=== PATIENT | male | born 1970 | race African-American/Black ===

== ENCOUNTER 2017-10-01 11:51 | Emergency (ER) | payer OTHER ==
[~2017-10-01] VITALS: Ht 188 cm; Wt 80.7 kg
[2017-10-01 12:09] VITALS: BP 159/94
--- NOTE | 2017-10-01 13:58 | RADIOLOGY REPORT ---
EXAMINATION: XR HAND, LEFT CLINICAL INFORMATION: Crush injury to second digit COMPARISON: None TECHNIQUE: PA, lateral, and oblique views of the left hand. FINDINGS: The patient has incurred a nondisplaced comminuted fractures involving the terminal tuft distal phalanx left second finger. Otherwise unremarkable. IMPRESSION: Crush fracture terminal tuft distal phalanx left second finger.
--- NOTE | 2017-10-01 15:42 | ED GENERAL ADULT ---
History of Present Illness General Chief Complaint: Hand or Wrist Injury Stated Complaint: LEFT SECOND DIGIT PAIN S/P HIT WITH HAMMER Source: patient Exam Limitations: no limitations Vital Signs & Intake/Output Vital Signs & Intake/Output Vital Signs Date Time Temp Pulse Resp B/P B/P Pulse O2 O2 Flow FiO2 Mean Ox Delivery Rate 10/01 1209 97.2 51 20 159/94 98 Room Air ED Intake and Output 10/02 0000 10/01 1200 Intake Total Output Total Balance Patient 178 lb Weight Weight Reported by Patient Measurement Method Allergies Coded Allergies: No Known Allergies (10/01/17) Triage Note: PT TO ED C/O LEFT HAND INDEX FINGER PAIN S/P HITTING IT WITH A NAIL ON SUNDAY. Triage Nurses Notes Reviewed? yes Onset: Abrupt Duration: day(s): Timing: constant HPI: 47 y/o right hand dominant male with no known PMHx presenting with pain and swelling to his left second digit sustained 2 days ago when he accidentally hit his finger with a hammer when aiming for a nail. Denies numbness or paresthesias. (Soumya Burden) Past History Travel History Traveled to [place] past 21 day No Medical History Any Pertinent Medical History? none Surgical History Surgical History: non-contributory Psychosocial History What is your primary language [place] Tobacco Use: Never used ETOH Use: denies use Illicit Drug Use: denies illicit drug use Family History Hx Contributory? No (Soumya Burden) Review of Systems Review of Systems Constitutional: Reports: no symptoms. EENTM: Reports: no symptoms. Respiratory: Reports: no symptoms. Cardiovascular: Reports: no symptoms. GI: Reports: no symptoms. Genitourinary: Reports: no symptoms. Musculoskeletal: Reports: see HPI. Skin: Reports: no symptoms. Neurological/Psychological: Reports: no symptoms. Hematologic/Endocrine: Reports: no symptoms. Immunologic/Allergic: Reports: no symptoms. (Soumya Burden) Physical Exam Physical Exam General Appearance: well developed/nourished, no apparent distress, alert, awake , comfortable Head: atraumatic, normal appearance Eyes: Bilateral: normal appearance. Neck: normal inspection Respiratory: normal breath sounds, lungs clear Cardiovascular: regular rate/rhythm Gastrointestinal: soft, non-tender Back: normal inspection Extremities: on exam of the left index finger there is diffuse circumferential edema, no nail injury, no subungual hematoma,unrestricted range of motion at the DIP/PIP/MCP, sensation intact, motor strength 5 out of 5 with finger flexion, extension, interosseous strength, radial pulses 2+ Neurologic/Psych: awake, alert, oriented x 3, normal gait, normal mood/affect Skin: intact, normal color, warm/dry Core Measures ACS in differential dx? No CVA/TIA Diagnosis: No Sepsis Present: No Sepsis Focused Exam Completed? No (Soumya Burden) Progress Differential Diagnoses I considered the following diagnoses in my evaluation of the patient: [finger contusion versus tuft fracture, no evidence of subungual hematoma or nail injury /nail bed injury on exam] Plan of Care: X-ray IMPRESSION: Crush fracture terminal tuft distal phalanx left second finger. Patient placed in finger splint Counseled on supportive care and strict return precautions Will follow up with his PMD for reevaluation Initial ED EKG: none (Soumya Burden) Departure Departure Disposition: HOME OR SELF CARE Condition: Stable Clinical Impression Primary Impression: Closed fracture of tuft of distal phalanx of finger Referrals: Ioana SALINAS,Yovany Andersen (PCP/Family) Additional Instructions: Keep finger in splint. Use ibuprofen as needed for pain. Apply ice to alleviate swelling. Follow up with your primary care provider for re-evaluation. Return to the emergency department for any new or worsening symptoms. Departure Forms: Customer Survey General Discharge Information (Soumya Burden) PA/BULK COOLER INSTALLER Co-Sign Statement Statement: ED Attending supervision documentation- I saw and evaluated the patient. I have also reviewed all the pertinent lab results and diagnostic results. I agree with the findings and the plan of care as documented in the PA's/BULK COOLER INSTALLER's documentation. x I have reviewed the ED Record and agree with the PA's/BULK COOLER INSTALLER's documentation. [] Additions or exceptions (if any) to the PAs/BULK COOLER INSTALLER's note and plan are summarized below: [] (Rubina SALINAS,Mejia) Critical Care Note Critical Care Note Critical Care Time: non-applicable (Soumya Burden)
== END 2017-10-01 16:32 ==
LOC: ERH 11:51
DX: S62.631A Displaced fracture of distal phalanx of left index finger, initial encounter for closed fracture (principal); W23.0XXA Caught, crushed, jammed, or pinched between moving objects, initial encounter; Y93.89 Activity, other specified; Y92.9 Unspecified place or not applicable
CPT/HCPCS: 73130-LT